=== PATIENT | male | born 1960 | race Caucasian/White ===

== ENCOUNTER → 2020-12-31 08:17 | Outpatient (CLI) | payer BC, SELFPAY ==
--- NOTE | ~2020-12-31 | US_ITS ---
EXAMINATION: US soft tissue LE LT DATE: 12/31/2020 08:35 INDICATION: Palpable abnormality at the dorsum of the left foot TECHNIQUE: Multiple grayscale and Doppler ultrasound images of the region of concern at the dorsum of the left foot were obtained. COMPARISON: None FINDINGS: Multiloculated anechoic fluid collection in the subcutaneous fat at the region of concern. The larges t component measures 2.6 x 1.8 x 1.3 cm. No solid soft tissue component or evident internal vascular flow on color Doppler. There appears to be a gradual tapering neck which extends an additional 2 cm d istally and beyond the margin of the [id number] on the longitudinal cine images. The surrounding s ubcutaneous fat and underlying muscles and tendons appear normal. IMPRESSION: 1. Multiloculated fluid collection likely representing a ganglion cyst at the dorsum of the foot the largest component measuring 2.6 x 1.8 x 1.3 cm. It is unclear whether this arises from one of the und erlying joint spaces or from one of the tendon sheaths. Reviewed, dictated and finalized at location A. IMPRESSION: 1. Multiloculated fluid collection likely representing a ganglion cyst at the d orsum of the foot the largest component measuring 2.6 x 1.8 x 1.3 cm. It is unc lear whether this arises from one of the underlying joint spaces or from one of the tendon sheaths.
== END ==
PROVIDERS: PCP Student in an Organized Health Care Education/Training Program; Visit Provider Student in an Organized Health Care Education/Training Program
DX: L98.9 Disorder of the skin and subcutaneous tissue, unspecified (principal); R93.7 Abnormal findings on diagnostic imaging of other parts of musculoskeletal system
CPT/HCPCS: 76882

== ENCOUNTER → 2021-01-19 07:41 | Outpatient (CLI) | payer BC, SELFPAY ==
--- NOTE | ~2021-01-19 | US_ITS ---
US right upper quadrant INDICATION: Right upper quadrant pain PROCEDURE: Realtime right upper abdominal ultrasound. COMPARISON: No prior studies for comparison. FINDINGS: The pancreas is normal without focal mass or pancreatic ductal dilation. There is a liver cysts, largest measuring 3.8 x 3.3 x 2.3 cm. Otherwise, liver echotexture is within normal limits. Th ere is normal directional flow in the portal vein. The gallbladder is normal without stones, gallbladder wall thickening or pericholecystic fluid. Comm on bile duct measures 4 mm. No sonographic Orantes's sign. IMPRESSION: 1: Unremarkable limited abdominal ultrasound. Reviewed, dictated and finalized at location B.
== END ==
PROVIDERS: PCP Registered Nurse; Visit Provider Registered Nurse
DX: R10.11 Right upper quadrant pain (principal); R19.5 Other fecal abnormalities
CPT/HCPCS: 76705

== ENCOUNTER → 2023-04-27 10:21 | Outpatient (CLI) | payer BC, SELFPAY ==
--- NOTE | ~2023-04-27 | MR_ITS ---
MRI of the brain Clinical History: Headache Technique: Axial and sagittal T1-weighted images were acquired. These were followed by axial T2-weigh rachael, diffusion weighted, gradient, and FLAIR images. Following intravenous administration of 18 cc Mu ltiHance gadolinium, T1-weighted fat-sat imaging was performed in the axial and coronal planes. Findings: No acute infarct, intracranial hemorrhage, or mass lesion identified. No significant signal abnormality seen in the brain parenchyma. Ventricles and subarachnoid spaces are unremarkable. Orbits are unremarkable. Paranasal sinuses and m astoid air cells are clear. Major intracranial flow voids are intact. Sagittal midline structures are intact. No abnormal postcontrast enhancement identified. IMPRESSION: Unremarkable exam. Reviewed, dictated and finalized at location M. NE ENGINEERING PROFESSOR IMPRESSION: Unremarkable exam.
== END ==
PROVIDERS: PCP Student in an Organized Health Care Education/Training Program; Visit Provider Student in an Organized Health Care Education/Training Program
DX: R42 Dizziness and giddiness (principal); R51.9 Headache, unspecified
CPT/HCPCS: 70553; A9577